=== PATIENT | male | born 1970 | race Caucasian/White ===

== ENCOUNTER → 2016-09-18 | Outpatient (CLI) | payer OTHER ==
[~2016-09-18] MED LIST: PRED1SUS3 OPL; VGMOPS OPL
--- NOTE | 2016-09-18 14:25 | DIAGNOSTIC IMAGING REPORT ---
Nuclear gastric emptying study: CLINICAL HISTORY: Nausea and bloating after eating. COMPARISON STUDY: None TECHNIQUE: Following the oral administration of 1.1 mCi of technetium 99m sulfur colloid in egg sandwich and 8 ounces of water, static abdominal images were obtained anteriorly and posteriorly at 0 minutes, 1 hour, 2 hour, and 4 hour time intervals. Gastric emptying was calculated utilizing the geometric mean method. FINDINGS: There is approximately 47% gastric activity remaining at the 1 hour time interval (normal is less than 90%), 27% at the 2 hour time interval (normal is less than 60%), and 0% remaining at the 4 hour time interval (normal is less than 10%). IMPRESSION: No evidence of delayed gastric emptying. Electronically signed by: Ye Stauffer M.D. 09/18/2016 2:24 PM Dictated Date/Time: 09/18/2016 2:22 PM
== END | disposition home or self-care (01) ==
LOC: C.NUCL 08:29
PROVIDERS: ATTEND Internal Medicine Gastroenterology
DX: R11.0 Nausea (principal); R14.0 Abdominal distension (gaseous)

== ENCOUNTER 2017-04-27 12:30 | Emergency (ER) | payer OTHER ==
[~2017-04-27] VITALS: Ht 180.3 cm; Wt 99.9 kg
[2017-04-27 12:33] VITALS: TEMP 36.5; Ht 180.3 cm; Wt 99.9 kg
[2017-04-27] MEDS ORDERED: DIPHTHERIA/TETANUS/PERTUSSIS 0.5 ML SYR/VIAL IM. ONE (12:45)
[2017-04-27] MEDS ORDERED: IBUPROFEN 600 MG TAB PO STA (12:45)
[2017-04-27] MEDS ORDERED: PRED1SUS3 OPL (12:53)
[2017-04-27] MEDS ORDERED: VGMOPS OPL (12:53)
--- NOTE | 2017-04-27 13:10 | DIAGNOSTIC IMAGING REPORT ---
R HAND MIN 3 VIEWS ROUTINE CLINICAL HISTORY: lac to thenar aspect of R hand deep with pruning sheers trauma COMPARISON: The 2013 DISCUSSION: The bones and joint spaces appear intact. There is no evidence of fracture, dislocation or bony disease. Moderate soft tissue prominence near the thenar eminence. No radiopaque foreign body. IMPRESSION: Soft tissue edema. No acute bony abnormality. The above report was generated using voice recognition software. It may contain grammatical, syntax or spelling errors. Electronically signed by: Naif Vickers M.D. 04/27/2017 1:09 PM Dictated Date/Time: 04/27/2017 1:08 PM
[2017-04-27] MEDS ORDERED: XYLOCAINE 1%/SOD BICARB 20 ML VIAL INFIL ONE (13:15)
--- NOTE | 2017-04-27 13:42 | EMERGENCY ROOM VISIT NOTE ---
ED Visit Note First contact with patient: 12:37 CHIEF COMPLAINT: Hand laceration HISTORY OF PRESENT ILLNESS: This 46-year-old male patient presents to the emergency department immediately after cutting the right hand hand with pruning zarina. The bleeding has not stopped. Denies weakness or numbness of the hand or fingers. The patient rates the pain as throbbing and 5/10. The patient denies any other injuries. The patient's Tetanus shot is not up to date. REVIEW OF SYSTEMS: A 6 system review of systems was completed with positives and pertinent negatives listed in the HPI. ALLERGIES: No known drug allergies MEDICATIONS: Reviewed PMH: Otherwise healthy SOCIAL HISTORY: Denies tobacco or EtOH use PHYSICAL EXAM: Vital Signs: Reviewed Nurse's notes, vital signs stable. GENERAL : 46-year-old male, in no acute distress, well-developed, well-nourished. SKIN : There is a 2 cm long laceration on the thenar aspect of the right hand. The edges gape apart with traction. There is no foreign material in the wound and it looks clean. There is mild bleeding. No deep structures such as tendons, bones, or significant blood vessels are seen in the base of the wound. Normal strength and movement of the fingers and wrist. Capillary refill less than 2 seconds. Normal sensation to light and sharp touch. EMERGENCY DEPARTMENT COURSE: I examined the patient. He was given 1 dose of ibuprofen 600 mg Imaging was performed and reviewed SOFT TISSUE NECK WITHOUT CLINICAL HISTORY: ? neck/trachea injury difficulty swallowing dysphagia TECHNIQUE: Transaxial acquisition. Multiaxial reformatted images COMPARISON STUDY: None FINDINGS: All major soft tissue structures of the soft tissue neck are unremarkable within limitations of an unenhanced scan. The glottic and subglottic regions are unremarkable. There is no abnormal paratracheal or. Esophageal soft tissue air. The muscular structures are unremarkable. The major salivary glands are unremarkable. IMPRESSION: Normal exam The above report was generated using voice recognition software. It may contain grammatical, syntax or spelling errors. Electronically signed by: Naif Vickers M.D. 04/27/2017 12:41 PM Dictated Date/Time: 04/27/2017 12:37 PM The findings were discussed with the patient Verbal consent was obtained to perform the procedure. Using sterile technique the wound was cleansed with Betadine. The area was sterilely draped. 5 ml of 1% buffered lidocaine was used to anesthetize the laceration on the hand. Once the patient was anesthetized, the wound was copiously irrigated under pressure with sterile saline. The wound was explored and was as described above. The laceration was repaired using 4 simple interrupted 5-0 nylon sutures with the wound edges being well approximated. The patient tolerated the procedure well. Hemostasis was achieved. The area was cleaned with sterile saline and dressed with bacitracin ointment and bandage. The patient was given Td immunization. The patient was discharged home in good condition. DIAGNOSIS: Hand laceration DISCHARGE INSTRUCTIONS & TREATMENT: Keep wound clean. It is okay to gently wash the area with soapy water. Do not submerse it in water for long periods of time such as swimming, going in hot tubs or taking baths until the sutures come out. Do not allow any crusting or dried blood to accumulate on sutures. If this occurs, use a 1:1 solution of hydrogen peroxide/water on a Q-tip to clean the wound. Use an antibiotic ointment for 3-4 days, then let wound dry. Suture removal in 14 days. Return sooner for any signs of infection ( increasing redness, swelling, drainage). Ice and elevate for swelling and pain. Ibuprofen 600 mg and Tylenol 1000 mg every 6 hrs for pain.
[2017-04-27 14:01] VITALS: BP 158/90; PULSE 72; O2SAT 97
== END 2017-04-27 14:02 | disposition home or self-care (01) ==
LOC: C.EDB 12:32 → C.EDD 14:02
DX: S61.411A Laceration without foreign body of right hand, initial encounter (principal); W27.8XXA Contact with other nonpowered hand tool, initial encounter